=== PATIENT | male | born 1975 | race Caucasian/White ===

== ENCOUNTER 2020-04-19 10:22 | Outpatient (CLI) | payer OTHER ==
--- NOTE | 2020-04-19 20:14 | XRAY Report ---
Reason: SHLDR JOINT PAINFUL IN MOVEMENT Procedure Date: 04/19/2020 Accession Number: [id number] / [id number] Procedure: XR - Shoulder 3 View RT CPT Code: Final Report FULL RESULT: EXAM: RIGHT SHOULDER RADIOGRAPHY EXAM DATE: 04/19/2020 10:52 AM. CLINICAL HISTORY: Shoulder pain. COMPARISON: None. TECHNIQUE: 3 views. FINDINGS: Bones: Normal. No fracture or bone lesion. Joints: Mild osteoarthritic changes present. Soft tissues: The visualized hemithorax is unremarkable. No soft tissue swelling. IMPRESSION: Mild osteoarthritis without acute fracture. RADIA
== END 2020-04-19 10:23 | disposition home or self-care (01) ==
LOC: DI 10:22
PROVIDERS: ATTEND Nurse Practitioner Family
DX: M19.011 Primary osteoarthritis, right shoulder (principal)

== ENCOUNTER 2021-07-03 07:03 | Outpatient (CLI) | payer OTHER ==
[2021-07-03] MEDS ORDERED: IOPAMIDOL-300 100 ML VIAL ONE (07:14)
[2021-07-03] MEDS ORDERED: IOVERSOL 320 50 ML VIAL ONE (07:14)
[2021-07-03 07:49] LABS: ALBUMIN/GLOBULIN RATIO 1.2 (1.0-2.2); BILIRUBIN,TOTAL 0.8 mg/dL (0.2-1.0); CALCIUM 9.2 mg/dL (8.5-10.3); CREATININE 0.8 mg/dL (0.6-1.2); POTASSIUM 3.8 mmol/L (3.5-5.0); TOTAL PROTEIN 7.3 g/dL (6.7-8.2)
[2021-07-03] MEDS ORDERED: IOPAMIDOL-300 100 ML VIAL IVP ONE (08:23)
--- NOTE | 2021-07-03 10:49 | CT Report ---
PROCEDURE: Abdomen/Pelvis W INDICATIONS: RIGHT LOWER QUAD PAIN CONTRAST: IV CONTRAST: Isovue 300 ml: 100 PO CONTRAST: Optiray 320 ml50 TECHNIQUE: After the administration of intravenous contrast, 5 mm thick sections acquired from the diaphragms to the symphysis. 5 mm thick coronal and sagittal reformats were acquired. For radiation dose reducti on, the following was used: automated exposure control, adjustment of mA and/or kV according to mahi ent size. COMPARISON: None. FINDINGS: Image quality: Excellent. ABDOMEN: Lung bases: Lung bases are clear. Heart size is normal. Solid organs: Hypoattenuation of the liver indicative of diffuse mild hepatic steatosis. Liver and s pleen are otherwise normal in size and enhancement. Gallbladder is normal. Biliary system is non di lated. Pancreas enhances normally. No adrenal nodules. Kidneys demonstrate normal size and enhance ment, without hydronephrosis. Peritoneum and bowel: Bowel loops demonstrate normal wall thickness and caliber. No free fluid or a ir. Nodes and vessels: No retroperitoneal or mesenteric adenopathy by size criteria. Aorta and inferior vena cava are normal in size. Miscellaneous: Fat-containing periumbilical hernia just right of midline with fascial defect measurin g 1.5 cm (series 3 image 69). PELVIS: Genitourinary: Bladder wall thickness is normal. Miscellaneous: Bilateral fat-containing inguinal hernias. No threshold enlarged pelvic or inguinal ly mph nodes. Bones: No suspicious bony lesions. No vertebral body compression fractures. IMPRESSION: Small fat-containing periumbilical hernia. Bilateral fat-containing inguinal hernias. Reviewed by: Alan Fernando MD on 07/03/2021 10:48 AM PDT Approved by: Alan Fernando MD on 07/03/2021 10:48 AM PDT Station ID: [id number]
== END 2021-07-03 07:04 | disposition home or self-care (01) ==
LOC: DI 07:03
PROVIDERS: ATTEND Nurse Practitioner Family
DX: K42.9 Umbilical hernia without obstruction or gangrene (principal); K40.20 Bilateral inguinal hernia, without obstruction or gangrene, not specified as recurrent
CPT/HCPCS: 36415; 74177; 80053; Q9967

== ENCOUNTER 2021-07-31 09:11 | Outpatient (CLI) | payer OTHER ==
--- NOTE | 2021-07-31 13:02 | Ultrasound Report ---
PROCEDURE: Testicle INDICATIONS: RIGHT TESTICLE PAIN TECHNIQUE: Real-time scanning was performed of the scrotum and testicles, with image documentation. Color and p ulse Doppler interrogation was performed of both testicles. COMPARISON: None. FINDINGS: Right: Testicle is normal in size at 4.8 x 1.9 x 2.9 cm, and homogenous in echotexture. Epididymis is normal in overall size and morphology. No hydrocele or varicoceles. Overlying scrotal skin is no rmal in thickness. Left: Testicle is normal in size at 4.5 x 2.1 x 3.1 cm, and homogeneous in echotexture. Epididymis is normal in overall size and morphology. There is a 9 x 8 x 6 mm left epididymal head cyst. No hydr ocele. Small left ureterocele. Overlying scrotal skin is normal in thickness. 3 x 2 x 1 mm right scro tolith. Doppler: Color and pulse Doppler demonstrate normal and symmetric arterial flow in both testicles. IMPRESSION: 1. Testicles are sonographically normal. 2. No evidence of testicular torsion. Please note ultrasound cannot exclude intermittent testicular t orsion. 3. Small left varicocele. 4. Small left epididymal cyst. Reviewed by: Mercedes Sexton MD, PhD on 07/31/2021 1:01 PM PDT Approved by: Mercedes Sexton MD, PhD on 07/31/2021 1:01 PM PDT Station ID: [id number]
== END 2021-07-31 09:12 | disposition home or self-care (01) ==
LOC: DI 09:11
PROVIDERS: ATTEND Nurse Practitioner Family
DX: N50.811 Right testicular pain (principal); I86.1 Scrotal varices; N50.3 Cyst of epididymis

== ENCOUNTER 2023-11-01 08:30 | Outpatient (CLI) | payer OTHER ==
[2023-11-01] MEDS ORDERED: iohexoL-300 100 ML VIAL IVP ONE (10:20)
[2023-11-01] MEDS ORDERED: DIATRIZOATE MEGLU/DIATRIZO SOD 30 ML BOTTLE PO ONE (10:21)
--- NOTE | 2023-11-01 15:27 | CT Report ---
PROCEDURE: ABDOMEN/PELVIS W INDICATIONS: LEFT UPPER QUAD PAIN CONTRAST: 100ml omni 300 TECHNIQUE: After the administration of oral and intravenous contrast, 5 mm thick sections acquired from the diap hragms to the symphysis. 5 mm thick coronal and sagittal reformats were acquired. For radiation dos e reduction, the following was used: automated exposure control, adjustment of mA and/or kV accordin g to patient size. COMPARISON: 07/03/2021 FINDINGS: Image quality: Excellent. Lung bases and heart: Unremarkable. Liver: Mild hepatic steatosis. No enhancing mass. Gallbladder and biliary tree: Normal gallbladder. Nondilated biliary tree. Spleen: No splenomegaly. Pancreas: No pancreatic ductal dilation. Adrenals: No adrenal nodule. Kidneys and ureters: No hydronephrosis. No renal cystic lesion which requires follow up. No solid mas s. Bowel and peritoneum: Small hiatal hernia. Decompressed stomach. Normal small bowel loops without obs truction. Normal appendix. No significant diverticular disease. The colon is underdistended limiting evaluation. No suspicious wall thickening or pericolonic inflammation. No extraluminal gas. Lymph nodes: No central or retroperitoneal adenopathy. Vessels: No infrarenal aortic aneurysm. PELVIS Reproductive organs: Normal size prostate gland. Bladder: No abnormal wall thickening, accounting for underdistension. Pelvic lymph nodes: No pelvic adenopathy by size criteria. Bones: No aggressive osseous abnormality. Other: Small fat-containing left inguinal hernia. There are necked, fat-containing umbilical hernia. Prior right inguinal hernia repair. IMPRESSION: 1. Small fat-containing left inguinal hernia. 2. Mild hepatic steatosis. 3. No inflammatory or obstructive changes in the abdomen or pelvis. Reviewed by: Shy Rivas MD on 11/01/2023 3:26 PM PST Approved by: Shy Rivas MD on 11/01/2023 3:26 PM PST Station ID: [id number]
== END 2023-11-01 08:31 | disposition home or self-care (01) ==
LOC: DI 08:30
PROVIDERS: ATTEND Registered Nurse
DX: R10.12 Left upper quadrant pain (principal); K40.90 Unilateral inguinal hernia, without obstruction or gangrene, not specified as recurrent; K76.0 Fatty (change of) liver, not elsewhere classified
CPT/HCPCS: 74177; Q9963; Q9967

== ENCOUNTER 2024-02-11 14:46 | Outpatient (CLI) | payer OTHER ==
--- NOTE | 2024-02-11 15:38 | XRAY Report ---
PROCEDURE: Foot 3+V LT INDICATIONS: SWELLING OF LEFT FOOT TECHNIQUE: 3 views of the foot were acquired. COMPARISON: None. FINDINGS: Bones: No fractures or dislocations. No suspicious bony lesions. Plantar and posterior calcaneal e nthesophytes. Soft tissues: No tibiotalar joint effusion. Achilles tendon appears normal. IMPRESSION: No acute bony abnormality. Reviewed by: Michael Anne MD on 02/11/2024 3:37 PM PDT Approved by: Michael Anne MD on 02/11/2024 3:37 PM PDT Station ID: [id number]
--- NOTE | 2024-02-11 15:39 | XRAY Report ---
PROCEDURE: Ankle 3+V LT INDICATIONS: L FOOT SWELLING TECHNIQUE: 3 views of the ankle were acquired. COMPARISON: None. FINDINGS: Bones: No fractures or dislocations. Ankle mortise is normally aligned. No suspicious bony lesions . Plantar and posterior calcaneal enthesophytes. Soft tissues: No tibiotalar joint effusion. Achilles tendon appears normal. Prominent veins within the subcutaneous tissues of the lower leg. IMPRESSION: 1.No acute bony abnormality. 2.Prominent veins within the subcutaneous tissues of the lower leg, correlate for venous stasis. Reviewed by: Michael Anne MD on 02/11/2024 3:38 PM PDT Approved by: Michael Anne MD on 02/11/2024 3:38 PM PDT Station ID: [id number]
== END 2024-02-11 14:47 | disposition home or self-care (01) ==
LOC: DI.S 14:46
PROVIDERS: ATTEND Registered Nurse
DX: M79.89 Other specified soft tissue disorders (principal); I87.8 Other specified disorders of veins